=== PATIENT | male | born 1955 | race Caucasian/White ===

== ENCOUNTER → 2016-09-04 | Outpatient (CLI) | payer OTHER | END | disposition home or self-care (01) | LOC: GMAL 10:36 | PROVIDERS: ATTEND Family Medicine | DX: D51.3 Other dietary vitamin B12 deficiency anemia (principal); E29.1 Testicular hypofunction; E55.9 Vitamin D deficiency, unspecified ==

== ENCOUNTER → 2016-11-20 | Outpatient (CLI) | payer OTHER | END | disposition home or self-care (01) | LOC: GMAL 15:13 | PROVIDERS: ATTEND Family Medicine | DX: N30.00 Acute cystitis without hematuria (principal) ==

== ENCOUNTER 2017-02-26 18:59 | Emergency (ER) | payer OTHER ==
--- NOTE | 2017-02-26 19:28 | RAD ---
EXAM DESCRIPTION: Chest,1 View CLINICAL HISTORY: 61 years Male Chest Pain COMPARISON: None. FINDINGS: The cardiomediastinal silhouette appears unremarkable. No consolidating infiltrates or pleural effusions. No pneumothorax. IMPRESSION: No acute abnormality is identified. Electronically signed by: Charla Horne 02/26/2017 7:27 PM CDT
[2017-02-26 19:37] VITALS: TEMP 98.6
[2017-02-26] MEDS ORDERED: KETOROLAC TROMETHAMINE INJ 30 MG/ML VIAL IV ONE (20:36)
--- NOTE | 2017-02-26 20:36 | ED.PDOC ---
History of Present Illness - General Chief Complaint: Chest Pain/PR Stated Complaint: chest pain Time Seen by Provider: 02/26/17 19:00 Source: patient, RN notes reviewed, Vital Signs reviewed Exam Limitations: no limitations - History of Present Illness Initial Comments: Patient presents to ER with c/o intermittent L chest pain for the past 5 days. The pain is sharp in nature and lasts minutes to an hour. Feels similar to when he had pleurisy in the past. No SOB, Diaphoresis or nausea. Timing/Duration: days - 5, intermittent, other - currently / Severity/Quality: mild, sharp Location: other - L mid chest Chest Pain Radiation: no radiation Activities at Onset: none Prior Chest Pain/Cardiac Workup: no prior chest pain, no prior cardiac workup Improving Factors: nothing Worsening Factors: nothing Nitro Today/Relief: no nitro taken today Aspirin Treatment Today: no aspirin today Associated Symptoms: denies symptoms Allergies/Adverse Reactions: Allergies NO KNOWN ALLERGY Allergy (Verified 10/12/15 10:17) Home Medications: Ambulatory Orders Esomeprazole Magnesium [Nexium] 20 mg PO DAILY 10/12/15 Naproxen [Naprosyn] 500 mg PO BID #60 tab 02/26/17 Review of Systems - Review of Systems Constitutional: States: no symptoms reported. Denies: diaphoresis, malaise EENTM: States: no symptoms reported Respiratory: States: no symptoms reported. Denies: short of breath Cardiology: States: see HPI, chest pain Gastrointestinal/Abdominal: States: no symptoms reported. Denies: nausea Musculoskeletal: States: no symptoms reported Skin: States: no symptoms reported Neurological: States: no symptoms reported All other Systems: No Change from Baseline Past Medical History (General) - Patient Medical History Hx Asthma: No Hx Congestive Heart Failure: No Hx Hypertension: No Hx Diabetes: No Hx Gastroesophageal Reflux: Yes Hx Cancer: No Surgical History: other - Vaccination History Hx Tetanus, Diphtheria Vaccination: No Hx Influenza Vaccination: Yes - Social History Hx Tobacco Use: Yes Years Tobacco Use: 30 Hx Alcohol Use: Yes Family Medical History - Family History Mother Family History: Unknown Physical Exam - Physical Exam General Appearance: Alert, Comfortable, No apparent distress, Well Developed, Well Groomed, Well Hydrated, Well Nourished Neck: supple, normal inspection Respiratory: chest non-tender, lungs clear, normal breath sounds, no respiratory distress Cardiovascular/Chest: regular rate, rhythm, no edema, no gallop, no JVD, no murmur Gastrointestinal/Abdominal: normal bowel sounds, non tender, soft, no organomegaly, no pulsatile mass Extremity: normal inspection Neurologic: alert, normal mood/affect, oriented x 3 Skin Exam: normal color, warm/dry Comments: Vital Signs 02/26/17 02/26/17 02/26/17 19:14 19:22 20:17 Temperature 98.6 F Pulse Rate 76 Pulse Rate [ 76 76 65 left] Respiratory 18 18 Rate Blood Pressure 151/81 109/69 [left] O2 Sat by Pulse 98 98 Oximetry Progress - Progress Progress: 02/26/17 20:39 Initial workup is normal. Will recheck cardiac enzymes 3 hours after initial labs. - Results/Orders Results/Orders: Laboratory Tests 02/26/17 02/26/17 02/26/17 19:15 19:15 22:17 WBC 7.4 RBC 5.08 Hgb 15.7 Hct 46.9 MCV 92.3 MCH 30.9 MCHC 33.5 RDW 13.2 Plt Count 225 MPV 8.6 Absolute Neuts (auto) 4.00 Absolute Lymphs (auto) 2.20 Absolute Monos (auto) 0.90 H Absolute Eos (auto) 0.20 Absolute Basos (auto) 0.10 Neutrophils % 53.8 Lymphocytes % 30.3 Monocytes % 12.1 H Eosinophils % 2.8 Basophils % 1.0 Sodium 138 Potassium 4.0 Chloride 105 Carbon Dioxide 26 Anion Gap 11.0 L BUN 22 H Creatinine 1.13 BUN/Creatinine Ratio 19.5 Random Glucose 121 H Serum Osmolality 280.3 Calcium 9.3 Total Bilirubin 0.5 AST 26 ALT 25 Alkaline Phosphatase 47 Creatine Kinase 92 79 CK-MB (CK-2) 1.1 1.1 CK-MB (CK-2) % Not Reportable Not Reportable Troponin I < 0.02 < 0.02 Serum Total Protein 7.4 Albumin 4.2 Globulin 3.2 Albumin/Globulin Ratio 1.3 - EKG/XRAY/CT EKG: Sinus, no ST T wave changes Comments: NSR, Rate 73 bpm XRAY: chest - No acute findings per Radiologist Departure - Departure Clinical Impression: Pleurisy without effusion or active tuberculosis Time of Disposition: 23:10 Disposition: Discharge to Home or Self Care Condition: Good Departure Forms: ED Discharge - Pt. Copy, Patient Portal Self Enrollment Instructions: DI for Pleurisy Diet: resume usual diet Activity: increase activity as tolerated Referrals: Norbert Montez III, MD [Primary Care Provider] - 1-2 Weeks Prescriptions: Naproxen [Naprosyn] 500 mg PO BID #60 tab Home Medications: Ambulatory Orders Esomeprazole Magnesium [Nexium] 20 mg PO DAILY 10/12/15 Naproxen [Naprosyn] 500 mg PO BID #60 tab 02/26/17
[2017-02-26 23:24] VITALS: BP 112/75; O2SAT 99
== END 2017-02-26 23:26 | disposition home or self-care (01) ==
LOC: ER 18:59
DX: R09.1 Pleurisy (principal); K21.9 Gastro-esophageal reflux disease without esophagitis; Z87.891 Personal history of nicotine dependence
CPT/HCPCS: 36415; 71010; 80053; 82550; 82553; 84484; 85025; 93005; J1885

== ENCOUNTER → 2017-09-05 | Outpatient (CLI) | payer OTHER | LOC: GMAL 10:52 | PROVIDERS: ATTEND Family Medicine | DX: Z00.01 Encounter for general adult medical examination with abnormal findings (principal) ==

== ENCOUNTER → 2018-09-08 | Outpatient (CLI) | payer SELFPAY | LOC: GMAL 10:48 | PROVIDERS: ATTEND Family Medicine | DX: D51.3 Other dietary vitamin B12 deficiency anemia (principal); R53.83 Other fatigue; E55.9 Vitamin D deficiency, unspecified; Z79.899 Other long term (current) drug therapy; Z12.5 Encounter for screening for malignant neoplasm of prostate | CPT/HCPCS: 82306; 82607; 84443; G0103 ==

== ENCOUNTER → 2019-02-24 | Outpatient (CLI) | payer MEDICARE | LOC: GMAL 13:20 | PROVIDERS: ATTEND Family Medicine | DX: R07.2 Precordial pain (principal); R53.82 Chronic fatigue, unspecified ==

== ENCOUNTER → 2019-12-22 | Outpatient (CLI) | payer MEDICARE | END | disposition home or self-care (01) | LOC: GMAL 10:39 | PROVIDERS: ATTEND Family Medicine | DX: D51.3 Other dietary vitamin B12 deficiency anemia (principal); R53.83 Other fatigue; E55.9 Vitamin D deficiency, unspecified ==

== ENCOUNTER → 2020-03-30 | Outpatient (CLI) | payer MEDICARE | LOC: GMAL 10:32 | PROVIDERS: ATTEND Family Medicine | DX: D51.3 Other dietary vitamin B12 deficiency anemia (principal); E78.5 Hyperlipidemia, unspecified; E55.9 Vitamin D deficiency, unspecified; Z12.5 Encounter for screening for malignant neoplasm of prostate; R53.83 Other fatigue; Z79.899 Other long term (current) drug therapy | CPT/HCPCS: 82306; 82607; 84443; G0103 ==